=== PATIENT | male | born 1955 | race Caucasian/White ===

== ENCOUNTER 2021-06-22 08:54 | Emergency (ER) | payer MEDICARE, OTHER ==
[~2021-06-22] VITALS: Ht 177.8 cm; Wt 111.0 kg
[~2021-06-22 08:54] MED LIST: LORA-250 PO
[2021-06-22] MEDS ORDERED: IBUP-2029 MT (11:43)
[2021-06-22 15:01] VITALS: BP 117/72
== END 2021-06-22 16:38 | disposition home or self-care (01) ==
LOC: ER 08:56
DX: R51.9 Headache, unspecified (principal); F41.9 Anxiety disorder, unspecified; F31.9 Bipolar disorder, unspecified; I10 Essential (primary) hypertension; F20.9 Schizophrenia, unspecified
CPT/HCPCS: 70486; 99291

== ENCOUNTER 2021-08-18 15:07 | Inpatient (IN) | payer MEDICARE, OTHER ==
[~2021-08-18] VITALS: Ht 177.8 cm; Wt 102.5 kg
[~2021-08-18 15:07] MED LIST changes: +IBUP-2029 MT
[2021-08-18] MEDS ORDERED: ALBUTEROL (0.083%) 2.5MG/3ML NEB HHN STA (15:37)
[2021-08-18] MEDS ORDERED: IPRATROPIUM BROMIDE (0.02%) 0.5MG/2.5ML NEB HHN STA (15:37)
[2021-08-18] MEDS ORDERED: METHYLPREDNISOLONE SOD SUCC 125 MG/2 ML VIAL IV STA (15:37)
[2021-08-18 16:10] LABS: BASOPHILS % 0.2 % (0.0-2.0); EOSINOPHILS % 0.9 % (0.0-5.0); HEMOGLOBIN. 11.8 g/dL (14.0-18.0); LYMPHOCYTES % 16.9 % (20.0-50.0); MEAN CORPUSCULAR HEMOGLOBIN 27.3 pg (28.0-32.0); MEAN CORPUSCULAR VOLUME 83.6 fL (80.0-94.0); MEAN PLATELET VOLUME 8.7 fl (7.4-10.4); MONOCYTES % 6.6 % (2.0-8.0); NEUTROPHILS % 75.4 % (40.0-76.0); PLATELET 144 x1000/uL (130-400); RED BLOOD CELL COUNT 4.31 mill/uL (4.7-6.1); RED CELL DISTRIBUTION WIDTH 14.9 % (11.6-14.6)
[2021-08-18 16:17] LABS: CHLORIDE 108 mEq/L (98-107)
[2021-08-18] MEDS ORDERED: METHYLPREDNISOLONE SOD SUCC 125 MG/2 ML VIAL IV NR (18:41)
[2021-08-18] MEDS ORDERED: ALBUTEROL (0.083%) 2.5MG/3ML NEB ONE (18:44)
[2021-08-18] MEDS ORDERED: IPRATROPIUM BROMIDE (0.02%) 0.5MG/2.5ML NEB ONE (18:45)
[2021-08-18] MEDS ORDERED: AMOX-424 MT (19:06)
[2021-08-18] MEDS ORDERED: P20 MT (19:06)
[2021-08-18] MEDS ORDERED: AZIT250T12 MT (19:06)
[2021-08-18] MEDS ORDERED: ACETAMINOPHEN 325MG TABLET PO STA (20:56)
[2021-08-18] MEDS ORDERED: SODIUM CHLORIDE 0.9% 1000ML BAG (SEPSIS BOLUS) IV ONE (21:00)
[2021-08-18] MEDS ORDERED: CEFTRIAXONE 1 G PREMIX 50 ML IV ONE (21:00)
[2021-08-18] MEDS ORDERED: AZITHROMYCIN 500MG/250ML 250 ML IV ONE (21:00)
[2021-08-19] MEDS ORDERED: ACETAMINOPHEN 500MG TABLET PO SCH
[2021-08-19] MEDS ORDERED: LORAZEPAM 2MG/ML CPJ IV SCH (05:00)
[2021-08-19] MEDS ORDERED: LORAZEPAM 2MG/ML CPJ IV PRN (05:00)
[2021-08-19] MEDS ORDERED: ACETAMINOPHEN 325MG TABLET PO PRN (10:30)
[2021-08-19] MEDS ORDERED: MAGNESIUM/ALUMINUM HYDROXIDE/SIMETHICONE 30ML UDC PO PRN (10:30)
[2021-08-19] MEDS ORDERED: CLONIDINE 0.1MG TABLET PO PRN (10:30)
[2021-08-19] MEDS ORDERED: IPRATROPIUM/ALBUTEROL 0.5-3(2.5)MG/3ML NEB HHN PRN (10:30)
[2021-08-19] MEDS ORDERED: ONDANSETRON HCL 4MG/2ML INJ IV PRN (10:30)
[2021-08-19] MEDS ORDERED: DOCUSATE SODIUM 100MG CAPSULE PO PRN (10:30)
[2021-08-19 12:53] LABS: BASOPHILS % 0.1 % (0.0-2.0); HEMATOCRIT. 32.3 % (42.0-52.0); HEMOGLOBIN. 10.8 g/dL (14.0-18.0); LYMPHOCYTES % 10.5 % (20.0-50.0); MEAN CORPUSCULAR HEMOGLOBIN 27.5 pg (28.0-32.0); MEAN CORPUSCULAR VOLUME 82.3 fL (80.0-94.0); MEAN PLATELET VOLUME 8.9 fl (7.4-10.4); MONOCYTES % 4.6 % (2.0-8.0); NEUTROPHILS % 84.8 % (40.0-76.0); PLATELET 142 x1000/uL (130-400); RED BLOOD CELL COUNT 3.92 mill/uL (4.7-6.1); RED CELL DISTRIBUTION WIDTH 14.2 % (11.6-14.6)
[2021-08-19 13:00] LABS: CHLORIDE 110 mEq/L (98-107)
[2021-08-19 16:30] VITALS: BP 119/53
[2021-08-19 20:00] VITALS: BP 141/57
[2021-08-19] MEDS: OLANZAPINE 10MG TABLET PO SCH (21:10)
[2021-08-19] MEDS: CEFTRIAXONE 1,000 MG in DEXTROSE 5% WATER 50 ML IV SCH (21:50)
[2021-08-19] MEDS ORDERED: NALOXONE HCL 0.4MG/ML VIAL IV PRN (22:45)
[2021-08-20] VITALS: BP 111/73
[2021-08-20 04:00] VITALS: BP 111/65
[2021-08-20 07:36] LABS: BASOPHILS % 0.2 % (0.0-2.0); EOSINOPHILS % 0.5 % (0.0-5.0); HEMATOCRIT. 34.4 % (42.0-52.0); HEMOGLOBIN. 11.6 g/dL (14.0-18.0); LYMPHOCYTES % 18.6 % (20.0-50.0); MEAN CORPUSCULAR HEMOGLOBIN 27.4 pg (28.0-32.0); MEAN CORPUSCULAR VOLUME 81.5 fL (80.0-94.0); MEAN PLATELET VOLUME 9.6 fl (7.4-10.4); MONOCYTES % 6.4 % (2.0-8.0); NEUTROPHILS % 74.3 % (40.0-76.0); PLATELET 182 x1000/uL (130-400); RED BLOOD CELL COUNT 4.22 mill/uL (4.7-6.1); RED CELL DISTRIBUTION WIDTH 14.6 % (11.6-14.6)
[2021-08-20 07:58] LABS: CHLORIDE 108 mEq/L (98-107)
[2021-08-20 08:00] VITALS: BP 140/59
[2021-08-20 08:20] LABS: PHOSPHORUS 2.6 mg/dL (2.5-4.9)
[2021-08-20] MEDS: OMEPRAZOLE 20MG CAPSULE EXTENDED RELEASE PO SCH (09:36)
[2021-08-20] MEDS: OLANZAPINE 10MG TABLET PO SCH (09:36)
[2021-08-20] MEDS: PREDNISONE 20MG TABLET PO SCH (09:36)
[2021-08-20 12:00] VITALS: BP 135/62
[2021-08-20 16:00] VITALS: BP 148/62
[2021-08-20 20:00] VITALS: BP 154/92
[2021-08-20] MEDS: CEFTRIAXONE 1,000 MG in DEXTROSE 5% WATER 50 ML IV SCH (20:53)
[2021-08-21] VITALS (7 sets, daily range): BP systolic 98–181; BP diastolic 51–87
[2021-08-21] MEDS: OMEPRAZOLE 20MG CAPSULE EXTENDED RELEASE PO SCH (06:38)
[2021-08-21 07:38] LABS: CHLORIDE 106 mEq/L (98-107)
[2021-08-21 07:48] LABS: BASOPHILS % 0.2 % (0.0-2.0); EOSINOPHILS % 0.7 % (0.0-5.0); HEMATOCRIT. 34.3 % (42.0-52.0); HEMOGLOBIN. 11.4 g/dL (14.0-18.0); LYMPHOCYTES % 23.4 % (20.0-50.0); MEAN CORPUSCULAR HEMOGLOBIN 27.5 pg (28.0-32.0); MEAN CORPUSCULAR VOLUME 82.4 fL (80.0-94.0); MEAN PLATELET VOLUME 9.2 fl (7.4-10.4); MONOCYTES % 7.4 % (2.0-8.0); NEUTROPHILS % 68.3 % (40.0-76.0); PLATELET 204 x1000/uL (130-400); RED BLOOD CELL COUNT 4.16 mill/uL (4.7-6.1); RED CELL DISTRIBUTION WIDTH 14.4 % (11.6-14.6)
[2021-08-21] MEDS: OLANZAPINE 10MG TABLET PO SCH (08:12)
[2021-08-21] MEDS: PREDNISONE 20MG TABLET PO SCH (08:12)
[2021-08-21] MEDS: VANCOMYCIN 1.25GM PMX (XELLIA) 250 ML IV SCH ×2 (13:22→21:01)
[2021-08-21] MEDS ORDERED: AZIT250T12 MT (14:14)
[2021-08-21] MEDS: HYDROCODONE/ACETAMINOPHEN 5/325MG TABLET PO PRN (16:57)
[2021-08-21] MEDS: CEFTRIAXONE 1,000 MG in DEXTROSE 5% WATER 50 ML IV SCH (21:01)
[2021-08-21] MEDS: IPRATROPIUM/ALBUTEROL 0.5-3(2.5)MG/3ML NEB HHN SCH (21:22)
[2021-08-22] VITALS: BP 102/52
[2021-08-22] MEDS: HYDROCODONE/ACETAMINOPHEN 5/325MG TABLET PO PRN (01:22)
[2021-08-22] MEDS: IPRATROPIUM/ALBUTEROL 0.5-3(2.5)MG/3ML NEB HHN SCH ×4 (01:31→20:08)
[2021-08-22 04:00] VITALS: BP 94/46
[2021-08-22 08:00] VITALS: BP 135/76
[2021-08-22] MEDS: FAMOTIDINE 20MG TABLET PO SCH ×2 (08:45→20:13)
[2021-08-22] MEDS: PREDNISONE 20MG TABLET PO SCH (08:45)
[2021-08-22] MEDS: OLANZAPINE 10MG TABLET PO SCH (08:45)
[2021-08-22] MEDS: VANCOMYCIN 1.25GM PMX (XELLIA) 250 ML IV SCH ×2 (08:46→20:13)
[2021-08-22 12:00] VITALS: BP 121/63
[2021-08-22 16:00] VITALS: BP 101/46
[2021-08-22 20:00] VITALS: BP 117/62
[2021-08-22] MEDS: CEFTRIAXONE 1,000 MG in DEXTROSE 5% WATER 50 ML IV SCH (20:13)
[2021-08-23] VITALS: BP 97/46
[2021-08-23] MEDS: IPRATROPIUM/ALBUTEROL 0.5-3(2.5)MG/3ML NEB HHN SCH ×3 (02:38→12:17)
[2021-08-23 04:00] VITALS: BP 118/61
[2021-08-23 06:57] LABS: CHLORIDE 106 mEq/L (98-107)
[2021-08-23 08:00] VITALS: BP 127/70
[2021-08-23] MEDS: VANCOMYCIN 1.25GM PMX (XELLIA) 250 ML IV SCH (09:33)
[2021-08-23] MEDS: PREDNISONE 20MG TABLET PO SCH (09:33)
[2021-08-23] MEDS: FAMOTIDINE 20MG TABLET PO SCH (09:33)
[2021-08-23] MEDS: OLANZAPINE 10MG TABLET PO SCH (09:33)
[2021-08-23 12:00] VITALS: BP 110/66
[2021-08-23 15:30] VITALS: BP_SYST 110; BP_SYST 142; BP_DIAS 110; BP_DIAS 86
[2021-08-23 16:00] VITALS: BP 142/86
== END 2021-08-23 19:55 | DRG 871 ==
LOC: ER 15:07 → MICUSO 08-19 00:49 → EDBEDREQSVC 08-19 11:34 → 7WST 08-19 16:59
PROVIDERS: ADMIT Internal Medicine; ATTEND Internal Medicine
DX: A41.9 Sepsis, unspecified organism (principal); J96.01 Acute respiratory failure with hypoxia; J69.0 Pneumonitis due to inhalation of food and vomit; J44.0 Chronic obstructive pulmonary disease with (acute) lower respiratory infection; E87.2 Acidosis; T17.998A Other foreign object in respiratory tract, part unspecified causing other injury, initial encounter; F20.9 Schizophrenia, unspecified; F31.9 Bipolar disorder, unspecified; F41.9 Anxiety disorder, unspecified; I10 Essential (primary) hypertension; R74.01 Elevation of levels of liver transaminase levels; R16.0 Hepatomegaly, not elsewhere classified; Z20.822 Contact with and (suspected) exposure to COVID-19; D64.9 Anemia, unspecified; X58.XXXA Exposure to other specified factors, initial encounter; Z79.899 Other long term (current) drug therapy; Z79.1 Long term (current) use of non-steroidal anti-inflammatories (NSAID); Z78.1 Physical restraint status; Y93.89 Activity, other specified; Y92.89 Other specified places as the place of occurrence of the external cause; Y99.8 Other external cause status
CPT/HCPCS: 36415; 71045; 76700; 80048; 80053; 80076; 80202; 83605; 83735; 83880; 84100; 84145; 84484; 85025; 87426; 93005; 93970; 94640; 94644; 99291; C9803; J0456; J0696; J2060; J2930; J3370; J7030; J7060; J7512